=== PATIENT | male | born 1965 | race Two or more races ===

== ENCOUNTER 2023-11-26 11:19 | Inpatient (IN) | payer MEDICAID ==
[2023-11-26] VITALS (11 sets, daily range): BP systolic 112–162; BP diastolic 60–94; PULSE 59–76; RESP 13–22; TEMP 98–98.7; O2SAT 93–100
[~2023-11-26] VITALS: Ht 170.2 cm; Wt 74.0 kg
[2023-11-26] MEDS ORDERED: GLIP5TAB12 PO (14:16)
[2023-11-26] MEDS ORDERED: ATOR20TA50 PO (14:16)
[2023-11-26] MEDS ORDERED: ASPI-325 PO (14:16)
[2023-11-26] MEDS ORDERED: METF-371 PO (14:16)
[2023-11-26] MEDS ORDERED: TICA90TA PO (14:16)
[2023-11-26 15:16] LABS: Hematocrit 41.2 % (41.0-53.0); Hemoglobin 13.8 g/dL (13.5-17.5); Mean Corpuscular Hemoglobin 30.9 pg (28.0-32.0); Mean Corpuscular Hgb Conc. 33.4 g/dL (32.0-36.0); Mean Corpuscular Volume 92.4 fL (80.0-100.0); Red Blood Cells 4.46 10^6/uL (4.5-5.90); Red Cell Distribution Width 14.1 % (11.8-14.3); White Blood Cell 10.3 10^3/uL (4.4-10.8)
[2023-11-26 15:22] LABS: Basophils % (manual) 0 (0.0-2.0); Blast Cells 0; Metamyelocytes % 0; Myelocytes % 0; Promyelocytes % 0; Reactive Lymphocytes 0
[2023-11-26 15:33] LABS: Alanine Aminotransferase 24 U/L (7-40); Alkaline Phosphatase 53 U/L (46-116); Anion Gap 6 (5-15); Aspartate Aminotransferase 18 U/L (13-40); BUN/Creatinine Ratio 16.5 (10.0-20.0); Blood Urea Nitrogen 20 mg/dL (9-23); Calcium 8.9 mg/dL (8.5-10.1); Carbon Dioxide 26 mmol/L (20-30); Chloride 107 mmol/L (98-107); Cholesterol 146 mg/dL (< 200); Glucose 222 mg/dL (74-106); LDL Cholesterol 93 mg/dL (< 100); Potassium 4.3 mmol/L (3.5-5.1); Sodium 139 mmol/L (136-145); Triglycerides 86 mg/dL (< 150)
[2023-11-26 15:34] LABS: Bilirubin, Total 0.5 mg/dL (0.2-1.0); HDL Cholesterol 46 mg/dL (40-59); Total Protein 5.8 g/dL (5.7-8.2)
[2023-11-26 15:36] LABS: INR 1.03 (0.9-1.15); Partial Thromboplastin Time 33.3 SEC (24.5-34.5); Prothrombin Time 10.8 sec (9.3-11.8)
[2023-11-26] MEDS ORDERED: HEPARIN DRIP/D5W 100UNITS/ML 250 ML IV SCH (15:45)
[2023-11-26] MEDS ORDERED: DEXTROSE (50%) 50ML SYRG IV PRN (16:15)
[2023-11-26 16:23] LABS: Band Neutrophils % (manual) 2; Eosinophils % (manual) 9 (0-7); Lymphocytes % (manual) 20 (10.0-50.0); Monocytes % (manual) 5 (0-12); Platelet Estimate Adequate
[2023-11-26] MEDS: InsuLIN REG 1unit/0.01ml Soln (100units/ml) SC SCH (17:00)
[2023-11-26] MEDS: ACCU-CHEK COMFORT CURVE STRIP VI SCH ×2 (17:00→21:12)
[2023-11-26] MEDS ORDERED: fentaNYL CITRATE 100 MCG/2 ML VL ONE (17:22)
[2023-11-26] MEDS ORDERED: HEPARIN SODIUM (PORCINE) 5000 UNITS/ML 1ML VIAL ONE (17:22)
[2023-11-26] MEDS ORDERED: MIDAZOLAM HCL 2MG/2ML 2ml VIAL (1mg/ml) ONE (17:22)
[2023-11-26] MEDS ORDERED: ANGIOMAX 250 MG VIAL IV ONE (17:22)
[2023-11-26] MEDS ORDERED: VERAPAMIL 2.5MG/ML INJ 2ML VIAL IV ONE (17:22)
[2023-11-26] MEDS ORDERED: SODIUM CHL 0.9% 50 ML ONE (17:23)
[2023-11-26] MEDS ORDERED: LIDOCAINE 2%HCL (LOCAL ANESTH.) INJ 20ML MDV ONE (17:23)
[2023-11-26] MEDS ORDERED: IODIXANOL 320MG/ML 100ML BTL IV ONE (17:23)
[2023-11-26] MEDS ORDERED: PROMETHAZINE HCL 25 MG/ML 1ML IV PRN (17:30)
[2023-11-26] MEDS ORDERED: MORPHINE SULFATE 4 MG/ML SYR/VIAL IV PRN (17:30)
[2023-11-26] MEDS ORDERED: MORPHINE SULFATE INJ 2 MG/ml SYRG IV PRN ×2 (17:30→18:00)
[2023-11-26] MEDS ORDERED: NITROGLYCERIN 0.4 MG SL TAB SL PRN (18:00)
[2023-11-26] MEDS ORDERED: TICAGRELOR 90 MG TAB ONE (18:36)
[2023-11-26] MEDS ORDERED: ASPirin 81 mg TAB ONE (18:38)
[2023-11-26] MEDS: TICAGRELOR 90 MG TAB PO SCH (19:40)
[2023-11-26] MEDS: METOPROLOL TARTRATE 25 MG TAB PO SCH (21:22)
[2023-11-26] MEDS ORDERED: InsuLIN REG 1unit/0.01ml Soln (100units/ml) SC SCH (22:00)
[2023-11-26] MEDS ORDERED: ATORVASTATIN 20 MG TAB PO SCH ×2 (22:00)
[2023-11-26 22:41] LABS: INR 1.19 (0.9-1.15); Prothrombin Time 12.4 sec (9.3-11.8)
[2023-11-27 05:00] VITALS: BP 137/75; PULSE 72; RESP 22; TEMP 98; O2SAT 98
[2023-11-27] MEDS: ACCU-CHEK COMFORT CURVE STRIP VI SCH ×2 (06:22→11:47)
[2023-11-27] MEDS: InsuLIN REG 1unit/0.01ml Soln (100units/ml) SC SCH ×2 (06:23→11:47)
[2023-11-27 08:00] VITALS: PULSE 60
[2023-11-27 08:10] VITALS: PULSE 59; RESP 16; O2SAT 98
[2023-11-27 09:00] VITALS: BP 125/73; PULSE 59; RESP 16; TEMP 98.3; O2SAT 98
[2023-11-27 09:12] LABS: Basophils # (auto) 0.1 10 ^3/uL (0-0.2); Basophils % (auto) 0.8 % (0.0-2.0); Eosinophils % (auto) 17.7 % (0.0-7.0); Hematocrit 41.9 % (41.0-53.0); Hemoglobin 14.3 g/dL (13.5-17.5); Lymphocytes # (auto) 2.3 10 ^3/uL (0.4-5.4); Lymphocytes % (auto) 20.2 % (10.0-50.0); Mean Corpuscular Hemoglobin 31.3 pg (28.0-32.0); Mean Corpuscular Hgb Conc. 34.2 g/dL (32.0-36.0); Mean Corpuscular Volume 91.5 fL (80.0-100.0); Monocytes # (auto) 0.7 10 ^3/uL (0-1.3); Neutrophils # (auto) 6.3 10 ^3/uL (1.6-8.6); Neutrophils % (auto) 55.3 % (37.0-80.0); Nucleated Red Blood Cells % 0.1 %; Red Blood Cells 4.57 10^6/uL (4.5-5.90); Red Cell Distribution Width 13.9 % (11.8-14.3); White Blood Cell 11.5 10^3/uL (4.4-10.8)
[2023-11-27 09:18] LABS: Chloride 107 mmol/L (98-107); Potassium 3.9 mmol/L (3.5-5.1); Sodium 139 mmol/L (136-145)
[2023-11-27 09:19] LABS: Anion Gap 8 (5-15); Calcium 9.2 mg/dL (8.5-10.1); Carbon Dioxide 24 mmol/L (20-30)
[2023-11-27 09:25] LABS: BUN/Creatinine Ratio 10.1 (10.0-20.0); Blood Urea Nitrogen 10 mg/dL (9-23); Glucose 230 mg/dL (74-106)
[2023-11-27] MEDS: METOPROLOL TARTRATE 25 MG TAB PO SCH (09:51)
[2023-11-27] MEDS: TICAGRELOR 90 MG TAB PO SCH (09:52)
[2023-11-27] MEDS ORDERED: FAMOTIDINE 20 MG TAB PO SCH (10:00)
[2023-11-27] MEDS ORDERED: ASPirin 81 mg TAB PO SCH (10:00)
[2023-11-27] MEDS ORDERED: ASPirin-EC 81 mg tab PO SCH (10:00)
[2023-11-27] MEDS ORDERED: ATOR20TA50 PO (11:56)
[2023-11-27] MEDS ORDERED: FAMO-12 PO (11:56)
[2023-11-27] MEDS ORDERED: TICA90TA PO (11:56)
[2023-11-27] MEDS ORDERED: ASPI-325 PO (11:56)
[2023-11-27 12:53] VITALS: BP 128/76; PULSE 86; RESP 15; TEMP 98.3; O2SAT 96
== END 2023-11-27 14:35 | disposition home or self-care (01) | DRG 174 ==
LOC: TELE-CENTR 13:34
PROVIDERS: ADMIT Hospitalist; ATTEND Hospitalist
PROC: 4A023N7 Measurement of Cardiac Sampling and Pressure, Left Heart, Percutaneous Approach (ICD-10-PCS; principal; 2023-11-26)
PROC: 027034Z Dilation of Coronary Artery, One Artery with Drug-eluting Intraluminal Device, Percutaneous Approach (ICD-10-PCS; 2023-11-26)
PROC: B211YZZ Fluoroscopy of Multiple Coronary Arteries using Other Contrast (ICD-10-PCS; 2023-11-26)
DX: I21.4 Non-ST elevation (NSTEMI) myocardial infarction (principal); E11.65 Type 2 diabetes mellitus with hyperglycemia; E66.9 Obesity, unspecified; E78.5 Hyperlipidemia, unspecified; I10 Essential (primary) hypertension; I25.10 Atherosclerotic heart disease of native coronary artery without angina pectoris; Z79.84 Long term (current) use of oral hypoglycemic drugs; Z83.3 Family history of diabetes mellitus; Z95.5 Presence of coronary angioplasty implant and graft; Z68.25 Body mass index [BMI] 25.0-25.9, adult
CPT/HCPCS: 36415; 71045; 80048; 80053; 80061; 82962; 83036; 84443; 84484; 85007; 85025; 85027; 85610; 85730; 87081; 92941; 93306; 93458; 99152; 99153; G0378; J1815; J2250; Q9967